=== PATIENT | female | born 1995 | race African-American/Black ===

== ENCOUNTER 2020-12-02 09:51 | Emergency (ER) | payer OTHER ==
[~2020-12-02] VITALS: Ht 167.6 cm; Wt 57.0 kg
[2020-12-02 10:34] LABS: BASOPHILS % 0.9 % (0.0-2.0); EOSINOPHILS % 0.5 % (0.0-5.0); HEMATOCRIT. 37.3 % (36.0-48.0); HEMOGLOBIN. 12.5 g/dL (12.0-16.0); MEAN CORPUSCULAR HEMOGLOBIN 29.9 pg (28.0-32.0); MEAN CORPUSCULAR VOLUME 89.3 fL (81.0-99.0); MEAN PLATELET VOLUME 8.2 fl (7.4-10.4); MONOCYTES % 8.2 % (2.0-8.0); NEUTROPHILS % 70.4 % (40.0-76.0); PLATELET 201 x1000/uL (130-400); RED BLOOD CELL COUNT 4.18 mill/uL (4.2-5.4); RED CELL DISTRIBUTION WIDTH 13.4 % (11.6-14.6)
[2020-12-02 10:44] LABS: CHLORIDE 108 mEq/L (98-107)
[2020-12-02 10:48] LABS: ETHANOL BLOOD < 10 mg/dL
[2020-12-02 10:57] LABS: HCG SCREEN POSITIVE
[2020-12-02 20:34] VITALS: BP 104/73
== END 2020-12-02 20:39 | disposition home or self-care (01) ==
LOC: ER 10:01
DX: O26.891 Other specified pregnancy related conditions, first trimester (principal); O99.341 Other mental disorders complicating pregnancy, first trimester; F32.9 Major depressive disorder, single episode, unspecified; Z3A.01 Less than 8 weeks gestation of pregnancy
CPT/HCPCS: 36415; 80053; 80320; 82962; 84703; 85025; 99283; G0480